=== PATIENT | male | born 1980 | race Caucasian/White ===

== ENCOUNTER 2016-11-24 11:49 | Emergency (ER) | payer BC ==
[~2016-11-24] VITALS: Ht 177.8 cm; Wt 83.8 kg
[2016-11-24 11:51] VITALS: TEMP 36.7; Ht 177.8 cm; Wt 83.8 kg
[2016-11-24] MEDS ORDERED: MoRPHine SULFATE 10 MG/ML CARP/VIAL IV STA (12:03)
[2016-11-24] MEDS ORDERED: ONDANSETRON INJ 2 MG/ML 2 ML VIAL IV STA (12:03)
[2016-11-24] MEDS ORDERED: SODIUM CHLORIDE 0.9% 1000ML 1,000 ML IV STA (12:03)
[2016-11-24] MEDS ORDERED: IBUP-1050 PO (12:03)
[2016-11-24 12:16] LABS: URINE BILIRUBIN NEG (NEG); URINE COLOR YELLOW; URINE NITRITE NEG (NEG); URINE SPECIFIC GRAVITY 1.022 (1.000-1.030); UROBILINOGEN NEG (NEG)
[2016-11-24 12:19] LABS: MANUAL MICROSCOPIC REQUIRED? NO; REVIEW REQ? NO
[2016-11-24 12:25] LABS: BASO % 0.1 %; BASO ABS # 0.01 K/uL (0-0.2); COMPLETE YES; HEMATOCRIT 41.9 % (42-52); IG% 0.1 %; LYMPH % 47.6 %; MEAN CELL VOLUME 83.3 fL (80-100); MEAN CORPUSCULAR HGB CONC 34.8 g/dl (32-36); MEAN PLATELET VOLUME 10.2 fL (7.4-10.4); MONO % 6.2 %; PLATELET COUNT 381 K/uL (130-400); RED BLOOD COUNT 5.03 M/uL (4.7-6.1); WHITE BLOOD COUNT 8.41 K/uL (4.8-10.8)
[2016-11-24 12:39] LABS: ALT/SGPT 28 U/L (12-78); BLOOD UREA NITROGEN 18 mg/dl (7-18); BUN/CREATININE RATIO 13.6 (10-20); CALCIUM 9.6 mg/dl (8.5-10.1); CARBON DIOXIDE 28 mmol/L (21-32); CHLORIDE 102 mmol/L (98-107); GLUCOSE 128 mg/dl (70-99); POTASSIUM 3.6 mmol/L (3.5-5.1); SODIUM 139 mmol/L (136-145)
[2016-11-24 12:42] LABS: ALKALINE PHOSPHATASE 62 U/L (45-117); AST/SGOT 17 U/L (15-37)
[2016-11-24] MEDS ORDERED: HYDROmorphone INJ 1 MG/ML SYR IV STA ×2 (12:48→13:38)
--- NOTE | 2016-11-24 12:57 | DIAGNOSTIC IMAGING REPORT ---
CT SCAN OF THE ABDOMEN AND PELVIS WITHOUT IV CONTRAST CLINICAL HISTORY: Right flank pain. Hematuria. COMPARISON STUDY: No priors. TECHNIQUE: CT scan of the abdomen and pelvis is performed from the lung bases to the proximal femora. Images are reviewed in the axial, sagittal, and coronal planes. IV contrast was not administered for this examination. Automated dose control exposure was utilized. A dose lowering technique was utilized adhering to the principles of ALARA. CT DOSE: 812.68 mGycm FINDINGS: Lung bases: The heart is normal in size and without pericardial effusion. The lung bases are clear. Liver: The unenhanced liver is enlarged, measuring 18.5 cm in length. The liver demonstrates diffusely diminished attenuation consistent with hepatic steatosis. Fatty sparing is seen adjacent to the gallbladder fossa. There is no intrahepatic biliary ductal dilatation. Gallbladder: Unremarkable. Spleen: Normal in size and attenuation. Pancreas: Unremarkable. Adrenal glands: Unremarkable. Kidneys: The unenhanced kidneys are normal in size. There is a 4 mm obstructing calculus just above the right vesicoureteral junction seen on image #[id number]. This causes mild right hydroureteronephrosis. There are at least 2 additional nonobstructing right renal calculi measuring up to 4 mm. At least 2 nonobstructing calculi are also seen in the left kidney. There is no left-sided hydronephrosis. There is no evidence of contour deforming renal mass lesion. Abdominal vasculature: The abdominal aorta is normal in course and caliber. Bowel: The small bowel and colon are normal in course and caliber. The appendix is well-visualized and normal. Peritoneum: There is no intraperitoneal free air or abdominal ascites. There is a small fat-containing umbilical hernia. Lymphadenopathy: None. Pelvic viscera: The bladder, prostate, and seminal vesicles are normal as visualized. Skeletal structures: No lytic or blastic lesions are seen. A disc herniation is suggested L5-S1. A bone island is incidentally noted in the left ischium. IMPRESSION: 1. There is a 4 mm obstructing calculus in the distal right ureter just above the vesicoureteral junction. This causes mild right-sided hydroureteronephrosis. 2. Additional bilateral nonobstructing renal calculi as above. 3. Hepatomegaly and hepatic steatosis. 4. A disc herniation is suggested L5-S1. 5. Additional findings as above. Electronically signed by: Gil Dexter M.D. 11/24/2016 12:55 PM Dictated Date/Time: 11/24/2016 12:51 PM
[2016-11-24] MEDS ORDERED: HYDR-5688 PO (14:44)
[2016-11-24 14:55] VITALS: BP 137/85; PULSE 86; O2SAT 97
--- NOTE | 2016-11-24 21:56 | EMERGENCY ROOM VISIT NOTE ---
ED Visit Note First contact with patient: 11:55 Chief Complaint: Abdominal pain. History of Present Illness: Mr. Ritchie is a 36 year-old white male who ambulates into the ED complaining of right flank and right sided abdominal pain. Historically patient reports he has a history of kidney stones and reports that he has passed stones in the past without pain. Additionally he notes approximately 3 months ago he was having right lower quadrant pain at a CT was performed and it was shown that he had tip appendicitis but the surgeon did not feel he needed an appendectomy and on the same CT he was found to have mesenteric adenitis. Additionally he reports approximately one month ago he was diagnosed with epididymitis of the right testicle. Patient reports a acute onset of mid right sided abdominal pain that started approximately 1 hour ago. Since that time the pain has been has been constant but has now spread into the right flank, into the right lower quadrant and right testicle. The pain is currently described as severe pressure sensation. He rates his discomfort 10/10. He has not identified any aggravating or alleviating factors related to the pain. He reports he did attempt to urinate but was unsuccessful. Associated with his pain he has been nauseated but has not vomited and he reports he has been having chills and sweats, but no jocy fever. Patient denies skin eruptions, skin color changes, upper respiratory tract symptoms, shortness of breath, chest pain, diarrhea, constipation, rectal bleeding, black/tarry stools, urinary symptoms, hematuria. Review of Systems: As noted above in history of present illness. All body systems were reviewed and found to be negative as noted above. Past Medical History: As noted above Current Medications: Patient denies. Allergies to Medications: Patient denies. Social History: Patient is currently employed; he feels safe in his home environment; he denies tobacco use. Physical Examination: Vital Signs: Date Time Temp Pulse Resp B/P (MAP) Pulse Ox O2 Delivery O2 Flow Rate FiO2 11/24/16 14:55 86 18 137/85 97 Room Air 11/24/16 13:44 89 18 145/95 97 Room Air 11/24/16 13:08 93 11/24/16 11:51 36.7 96 20 156/103 93 Room Air GENERAL: 36-year-old male in severe distress due to pain, nontoxic-appearing, afebrile and hemodynamically stable. NEUROLOGICAL: Awake, alert and oriented to person, place and time. Answering questions appropriately and following commands. Normal gait. Good hand eye coordination. SKIN: Warm, dry and pink. No soft tissue eruptions or trauma noted. HEENT: Atraumatic and normocephalic. PERRLA. Sclera white and conjunctiva pink. Pharynx is nonerythematous or edematous. No lymphadenopathy. Trachea midline. No jugular venous distention. BACK: No tenderness over the bony spine. Mild right sided CVA tenderness. THORAX: Lungs sounds are clear to auscultation and equal bilaterally with symmetrical chest wall. No wheezing, rales or rhonchi. No crepitus, tenderness , subcutaneous air or deformities noted. HEART: Regular rate and rhythm. No gallops, rubs or murmurs are appreciated. ABDOMEN: Flat, soft and nontender. Positive bowel sounds in all quadrants. No guarding, rigidity or organomegaly. GENITALS: EXTREMITIES: Moves all extremities well on command and with purpose. All distal neurovascular statuses are intact and equal bilaterally. ED Course: Patient is assessed as noted above. Laboratory Testing: Test 11/24/16 12:05 Range/Units White Blood Count 8.41 4.8-10.8 K/uL Red Blood Count 5.03 4.7-6.1 M/uL Hemoglobin 14.6 14.0-18.0 g/dL Hematocrit 41.9 42-52 % Mean Corpuscular Volume 83.3 80-100 fL Mean Corpuscular Hemoglobin 29.0 25-34 pg Mean Corpuscular Hemoglobin Concent 34.8 32-36 g/dl Platelet Count 381 130-400 K/uL Mean Platelet Volume 10.2 7.4-10.4 fL Neutrophils (%) (Auto) 44.0 % Lymphocytes (%) (Auto) 47.6 % Monocytes (%) (Auto) 6.2 % Eosinophils (%) (Auto) 2.0 % Basophils (%) (Auto) 0.1 % Neutrophils # (Auto) 3.70 1.4-6.5 K/uL Lymphocytes # (Auto) 4.00 1.2-3.4 K/uL Monocytes # (Auto) 0.52 0.11-0.59 K/uL Eosinophils # (Auto) 0.17 0-0.5 K/uL Basophils # (Auto) 0.01 0-0.2 K/uL RDW Standard Deviation 38.0 36.4-46.3 fL RDW Coefficient of Variation 12.8 11.5-14.5 % Immature Granulocyte % (Auto) 0.1 % Immature Granulocyte # (Auto) 0.01 0.00-0.02 K/uL Urine Color YELLOW Urine Appearance ERROR CLEAR Urine pH 7.0 4.5-7.5 Urine Specific [place] 1.022 1.000-1.030 Urine Protein NEG NEG Urine Glucose (UA) NEG NEG Urine Ketones NEG NEG Urine Occult Blood NEG NEG Urine Nitrite NEG NEG Urine Bilirubin NEG NEG Urine Urobilinogen NEG NEG Urine Leukocyte Esterase NEG NEG Sodium Level 139 136-145 mmol/L Potassium Level 3.6 3.5-5.1 mmol/L Chloride Level 102 98-107 mmol/L Carbon Dioxide Level 28 21-32 mmol/L Anion Gap 9.0 3-11 mmol/L Blood Urea Nitrogen 18 7-18 mg/dl Creatinine 1.30 0.60-1.40 mg/dl Est Creatinine Clear Calc Drug Dose 82.7 ml/min Estimated GFR () 82.5 Estimated GFR (Non- 71.2 BUN/Creatinine Ratio 13.6 10-20 Random Glucose 128 70-99 mg/dl Calcium Level 9.6 8.5-10.1 mg/dl Total Bilirubin 0.3 0.2-1 mg/dl Direct Bilirubin < 0.1 0-0.2 mg/dl Aspartate Amino Transf (AST/SGOT) 17 15-37 U/L Alanine Aminotransferase (ALT/SGPT) 28 12-78 U/L Alkaline Phosphatase 62 45-117 U/L Total Protein 8.0 6.4-8.2 gm/dl Albumin 4.1 3.4-5.0 gm/dl Lipase 456 73-393 U/L Noncontrast Abdominal/Pelvic CT: Was reviewed by myself and read by the radiologist showing a 4 mm right ureter calculus at the UVJ causing mild hydronephrosis. Normal-appearing tendons lymph nodes, pancreas, gallbladder and adrenal glands. No findings within the colon. Patient was hydrated with normal saline and initially he received 6 mg of morphine IV for pain and 4 mg of Zofran IV for nausea. After returning from CAT scan his pain was still severe and he was given a total of 2 mg of Dilaudid IV. Patient was reassessed multiple times during his stay in the emergency department. Patient's case was reviewed with Dr. Schaefer; we agreed on diagnostic approach , treatment, disposition and plan. Patient was educated about today's findings and instructed on his treatment plan ; he verbalized understanding and agreement with this plan. Clinical Impression: Right ureter calculus. Decision-Making: Initially my differential diagnosis I considered ureter [place]ack[place] 's, pyelonephritis, appendicitis, constipation, perforated viscus, pancreatitis , hepatitis and other causes. Disposition: Patient discharged home in stable condition accompanied by family members; prior to departure he was reassessed and subjectively reported he was pain-free. Plan: Patient was placed on a sliding pain scale of ibuprofen, see acetaminophen and [place]; he was given appropriate narcotic precautions and his name was checked him state database and no red flags were noted. Patient was encouraged to increase clear fluids. Patient was encouraged to strain and collect all stones for analysis. Patient was encouraged to follow-up with urology for definitive care and treatment. Patient was encouraged return ED for worsening/uncontrolled pain, fevers, uncontrolled nausea/vomiting, urinary burning, gross hematuria or any new/ concerning symptoms.
== END 2016-11-24 15:02 | disposition home or self-care (01) ==
LOC: C.EDB 11:51
DX: N20.1 Calculus of ureter (principal)